=== PATIENT | male | born 1960 | race American Indian/Alaskan Native ===

== ENCOUNTER 2018-05-01 11:09 | Emergency (ER) | payer MEDICAID ==
--- NOTE | 2018-05-01 11:47 | Emergency Department Report ---
ED Abdominal Pain HPI - General Chief Complaint: Abdominal Pain Stated Complaint: STOMACH/PAIN Time Seen by Provider: 05/01/18 11:34 Source: patient Mode of arrival: Ambulatory Limitations: No Limitations - History of Present Illness Initial Comments: Patient is 58 years old male with history of hypertension diabetes and heavy alcoholism. Patient presented to the ER complaining of generalized abdominal pain and distention. Patient is being followed by Dr. Barnett and he was sent here for further evaluation. Patient denied any nausea vomiting. He described his abdominal pain is diffuse. He denied any fever or diarrhea. Patient also complaining of shortness of breath has been going on for a while associated with lower extremity edema. MD Complaint: abdominal pain - Related Data Allergies Allergy/AdvReac Type Severity Reaction Status Date / Time No Known Allergies Allergy Unverified 05/01/18 11:26 ED Review of Systems ROS: Stated complaint: STOMACH/PAIN Other details as noted in HPI Comment: All other systems reviewed and negative Constitutional: denies: chills, fever Respiratory: denies: cough, orthopnea, shortness of breath, SOB with exertion, SOB at rest, wheezing Cardiovascular: denies: chest pain, palpitations, dyspnea on exertion Gastrointestinal: abdominal pain. denies: nausea, vomiting, diarrhea, constipation, hematemesis, melena, hematochezia Musculoskeletal: denies: back pain Skin: denies: rash, lesions Neurological: denies: headache, weakness, numbness, paresthesias, confusion, abnormal gait, vertigo ED Past Medical Hx - Past Medical History Hx Hypertension: Yes Additional medical history: pt on disability,failed stress test due to severe SOB with exertion - Surgical History Past Surgical History?: No - Social History Smoking Status: Never Smoker Substance Use Type: Alcohol ED Physical Exam - General Limitations: No Limitations General appearance: alert, in no apparent distress - Head Head exam: Present: atraumatic, normocephalic, normal inspection - Eye Eye exam: Present: normal appearance - ENT ENT exam: Present: normal exam, normal orophraynx, mucous membranes moist - Neck Neck exam: Present: normal inspection, full ROM. Absent: tenderness, meningismus, lymphadenopathy, thyromegaly - Respiratory Respiratory exam: Present: normal lung sounds bilaterally. Absent: respiratory distress, wheezes, rales, rhonchi, chest wall tenderness, accessory muscle use, decreased breath sounds, prolonged expiratory - Cardiovascular Cardiovascular Exam: Present: regular rate, normal rhythm, normal heart sounds - GI/Abdominal GI/Abdominal exam: Present: soft, distended, normal bowel sounds. Absent: tenderness, guarding, rebound, rigid, hypoactive bowel sounds, mass, bruit, pulsatile mass, hernia - Extremities Exam Extremities exam: Present: normal inspection, full ROM, normal capillary refill , pedal edema. Absent: tenderness, joint swelling, calf tenderness - Back Exam Back exam: Present: normal inspection, full ROM. Absent: CVA tenderness (R), CVA tenderness (L), muscle spasm, paraspinal tenderness, vertebral tenderness, rash noted - Neurological Exam Neurological exam: Present: alert, oriented X3, CN II-XII intact, normal gait, reflexes normal - Skin Skin exam: Present: warm, intact, normal color ED Course Vital Signs 05/01/18 05/01/18 11:21 11:55 Temperature 98.1 F Pulse Rate 76 Respiratory 20 18 Rate Blood Pressure 169/108 O2 Sat by Pulse 98 Oximetry ED Medical Decision Making - Lab Data Result diagrams: 05/01/18 11:50 05/01/18 11:50 - Radiology Data Radiology results: report reviewed Referring Physician: SAEED JEFF Patient Name: MEGAN MCCALLUM Date of : 1960 Sex: Male Report Date: 2018-05-01 Report Status: Finalized Findings [facility] [address] [place] [address] Cat Scan Report Signed Patient: MEGAN MCCALLUM MR#: [id number] : 1960 Acct:[id number] Age/Sex: 58 / M ADM Date: 05/01/18 Loc: ED Attending Dr: Ordering Physician: SAEED JEFF Date of Service: 05/01/18 Procedure(s): CT abdomen pelvis w con Accession Number(s): [id number] cc: SAEED JEFF FINAL REPORT EXAM: CT ABDOMEN PELVIS W CON HISTORY: abdominal pain TECHNIQUE: CT of the abdomen and pelvis was performed after the administration of intravenous contrast. Subsequently, CT of the abdomen and pelvis was performed in the delayed phase. Reconstructions were included in the coronal and sagittal planes. PRIORS: None. FINDINGS: Lower thorax: Bibasilar atelectasis is seen. There is a focal rounded subpleural opacity in the periphery of the right lower lobe on series 2, image 16 measuring 15 millimeters. Multi chamber cardiac enlargement is seen. Liver: The liver is normal in attenuation. No intrahepatic biliary duct dilation. No focal hepatic lesions. Gallbladder/ biliary system: No cholelithiasis. The common bile duct appears nondilated. Spleen: No splenic lesions are seen. Pancreas: No pancreatic lesions are seen. No pancreatic duct dilation. Kidneys: There is a focal low-attenuation lesion in the interpolar region of the right kidney measuring 1.1 centimeters which is higher in attenuation than a simple cyst. No left renal lesions. No hydronephrosis is seen. No ureteral filling defects. Adrenal glands: No adrenal masses. Vasculature: The abdominal and pelvic vasculature is patent without variant anatomy. Lymph nodes: No enlarged lymph nodes are seen in the abdomen or pelvis. Bowel, mesentery, peritoneum: No bowel obstruction. No free fluid or free air. No evidence of acute appendicitis. Colonic diverticulosis is seen. There is submucosal fat within the cecum. No evidence of diverticulitis. Submucosal fat is seen within the gastric wall. Urinary bladder: No filling defects are seen. Pelvis: Normal anatomy is noted. No masses. Abdominal wall: Small bilateral fat containing inguinal hernias are seen. There is a fat containing umbilical hernia. Bones: Degenerative changes are seen in the spine. IMPRESSION: 1. Nonspecific right renal lesion is higher in attenuation than a simple cyst. Solid renal neoplasm is not excluded. Recommend further evaluation with renal CT or MRI. 2. Submucosal fat in the gastric wall as well as the cecum can be seen in chronic or prior inflammation or infection. 3. Multi chamber cardiac enlargement. 4. Nonspecific rounded subpleural opacity in the peripheral aspect of the right lower lobe most likely represents rounded atelectasis however an underlying pulmonary neoplasm is not completely excluded. Recommend further evaluation with chest CT to exclude other nodules. 5. Colonic diverticulosis. Transcribed By: Dictated By: REUBEN GREENE MD Electronically Authenticated By: REUBEN GREENE MD Signed Date/Time: 05/01/181336 DD/ 36 TD/TT: 05/01/181336 - Medical Decision Making I discussed the patient with Dr Barnett, presented to the ER to see the patient. He stated that patient can be discharged home and to follow up with [facility]. Critical care attestation.: If time is entered above; I have spent that time in minutes in the direct care of this critically ill patient, excluding procedure time. ED Disposition Clinical Impression: Abdominal pain Disposition: DC-01 TO HOME OR SELFCARE Is pt being admited?: No Condition: Stable Instructions: Abdominal Pain (ED) Referrals: [facility], [facility] [Provider Group] - 3-5 Days
[2018-05-01 12:05] LABS: Basophils # (Auto) 0.1 K/mm3 (0.0-0.1); Eosinophils # (Auto) 0.1 K/mm3 (0.0-0.4); Eosinophils % (Auto) 2.4 % (0.0-4.3); Hematocrit 34.4 % (35.5-45.6); Hemoglobin 11.7 gm/dl (11.8-15.2); Lymphocytes # (Auto) 1.6 K/mm3 (1.2-5.4); Mean Corpuscular HGB Conc 34 % (32-34); Mean Corpuscular Hemoglobin 33 pg (28-32); Mean Corpuscular Volume 97 fl (84-94); Monocytes # (Auto) 0.6 K/mm3 (0.0-0.8); Monocytes % (Auto) 10.8 % (0.0-7.3); Platelet Count 243 K/mm3 (140-440); Red Blood Count 3.53 M/mm3 (3.65-5.03); Red Cell Distribution Width 15.9 % (13.2-15.2)
[2018-05-01 12:15] LABS: INR 0.85 (0.87-1.13)
[2018-05-01 12:27] LABS: Alanine Aminotransferase 30 units/L (7-56); Albumin 4.2 g/dL (3.9-5); BUN/Creatinine Ratio 14; Blood Urea Nitrogen 14 mg/dL (9-20); Calcium 9.5 mg/dL (8.4-10.2); Hemolysis Index 14; Lipase 24 units/L (13-60)
[2018-05-01 12:29] LABS: Bilirubin,Direct < 0.2 mg/dL (0-0.2)
[2018-05-01 12:46] LABS: Bilirubin,Urine NEG (Negative); Blood,Urine NEG (Negative); Color,Urine Yellow (Yellow); Protein,Urine <15 mg/dL mg/dL (Negative); Urobilinogen,Urine < 2.0 mg/dL (<2.0)
--- NOTE | 2018-05-01 13:43 | Cat Scan Report ---
FINAL REPORT EXAM: CT ABDOMEN PELVIS W CON HISTORY: abdominal pain TECHNIQUE: CT of the abdomen and pelvis was performed after the administration of intravenous contrast. Subsequently, CT of the abdomen and pelvis was performed in the delayed phase. Reconstructions were included in the coronal and sagittal planes. PRIORS: None. FINDINGS: Lower thorax: Bibasilar atelectasis is seen. There is a focal rounded subpleural opacity in the periphery of the right lower lobe on series 2, image 16 measuring 15 millimeters. Multi chamber cardiac enlargement is seen. Liver: The liver is normal in attenuation. No intrahepatic biliary duct dilation. No focal hepatic lesions. Gallbladder/ biliary system: No cholelithiasis. The common bile duct appears nondilated. Spleen: No splenic lesions are seen. Pancreas: No pancreatic lesions are seen. No pancreatic duct dilation. Kidneys: There is a focal low-attenuation lesion in the interpolar region of the right kidney measuring 1.1 centimeters which is higher in attenuation than a simple cyst. No left renal lesions. No hydronephrosis is seen. No ureteral filling defects. Adrenal glands: No adrenal masses. Vasculature: The abdominal and pelvic vasculature is patent without variant anatomy. Lymph nodes: No enlarged lymph nodes are seen in the abdomen or pelvis. Bowel, mesentery, peritoneum: No bowel obstruction. No free fluid or free air. No evidence of acute appendicitis. Colonic diverticulosis is seen. There is submucosal fat within the cecum. No evidence of diverticulitis. Submucosal fat is seen within the gastric wall. Urinary bladder: No filling defects are seen. Pelvis: Normal anatomy is noted. No masses. Abdominal wall: Small bilateral fat containing inguinal hernias are seen. There is a fat containing umbilical hernia. Bones: Degenerative changes are seen in the spine. IMPRESSION: 1. Nonspecific right renal lesion is higher in attenuation than a simple cyst. Solid renal neoplasm is not excluded. Recommend further evaluation with renal CT or MRI. 2. Submucosal fat in the gastric wall as well as the cecum can be seen in chronic or prior inflammation or infection. 3. Multi chamber cardiac enlargement. 4. Nonspecific rounded subpleural opacity in the peripheral aspect of the right lower lobe most likely represents rounded atelectasis however an underlying pulmonary neoplasm is not completely excluded. Recommend further evaluation with chest CT to exclude other nodules. 5. Colonic diverticulosis.
[2018-05-01] MEDS ORDERED: CATAPRES PO ONE (14:23)
[2018-05-01 15:56] VITALS: BP 172/107
== END 2018-05-01 16:01 | disposition home or self-care (01) ==
LOC: ED 11:09
DX: R10.84 Generalized abdominal pain (principal); I10 Essential (primary) hypertension; E11.9 Type 2 diabetes mellitus without complications; F10.20 Alcohol dependence, uncomplicated
CPT/HCPCS: 36415; 74177; 80048; 80074; 81001; 83690; 85025; 85610; Q9967